=== PATIENT | female | born 1965 | race Caucasian/White ===

== ENCOUNTER 2019-01-09 14:17 | Emergency (ER) | payer OTHER ==
[~2019-01-09] VITALS: Ht 154.9 cm; Wt 57.6 kg
[2019-01-09 14:27] VITALS: BP_SYST 135
[2019-01-09] MEDS ORDERED: IPRATROPIUM/ALBUTEROL SULFATE 3 ML AMPUL.NEB (DUONEB) INH ONE (17:45)
[2019-01-09 18:53] VITALS: BP_SYST 126
== END 2019-01-09 18:53 | disposition home or self-care (01) ==
LOC: SED 14:17
DX: J20.9 Acute bronchitis, unspecified (principal); F41.9 Anxiety disorder, unspecified; F32.9 Major depressive disorder, single episode, unspecified; R03.0 Elevated blood-pressure reading, without diagnosis of hypertension; Z90.49 Acquired absence of other specified parts of digestive tract
CPT/HCPCS: 71045; 99283; J7620

== ENCOUNTER 2019-06-23 01:50 | Emergency (ER) | payer OTHER ==
[~2019-06-23] VITALS: Ht 147.3 cm; Wt 54.4 kg
[2019-06-23 02:10] VITALS: BP_SYST 113
[2019-06-23] MEDS ORDERED: NACL 0.9% 1,000 ML IV ONE ×2 (02:41→04:00)
[2019-06-23] MEDS ORDERED: MORPHINE 4 MG/ML INJ. SYRINGE IVP ONE (03:00)
[2019-06-23] MEDS ORDERED: ONDANSETRON HCL 4 MG/2 ML VIAL IVP ONE (03:00)
[2019-06-23 03:21] LABS: BASOPHILS # (AUTO) 0.1 K/uL (0.0-0.2); EOSINOPHILS # (AUTO) 0.2 K/uL (0.0-0.4); EOSINOPHILS % (AUTO) 1.6 % (0.0-4.0); HEMATOCRIT 37.5 % (36-48); HEMOGLOBIN 12.5 g/dL (12.0-16.0); LYMPHOCYTES # (AUTO) 3.5 K/uL (1.0-5.5); LYMPHOCYTES % (AUTO) 31.3 % (20.5-51.5); MEAN CORPUSCULAR HEMOGLOBIN 29 pg (27-31); MEAN CORPUSCULAR HGB CONC 33 % (32-36); MEAN CORPUSCULAR VOLUME 87 fL (79.0-98.0); MONOCYTES # (AUTO) 0.7 K/uL (0.0-1.0); MONOCYTES % (AUTO) 6.3 % (1.7-9.3); NEUTROPHILS # (AUTO) 6.6 K/uL (1.8-7.7); NEUTROPHILS % (AUTO) 59.8 % (40.0-70.0); PLATELET COUNT (AUTO) 200 K/uL (130-430); RED BLOOD CELL COUNT(AUTO) 4.31 MIL/uL (4.2-6.2); RED CELL DISTRIBUTION WIDTH 13.4 % (9.0-15.0)
[2019-06-23 03:25] LABS: BILIRUBIN,URINE NEGATIVE (NEGATIVE); CLARITY/URINE CLEAR (CLEAR); COLOR,URINE YELLOW (YELLOW); GLUCOSE,URINE NEGATIVE (NEGATIVE); KETONES,URINE NEGATIVE (NEGATIVE); LEUKOCYTE ESTERASE ,URINE TRACE (NEGATIVE); NITRITE, URINE NEGATIVE (NEGATIVE); PH,URINE 6.5 (5.0-8.0); PROTEIN URINE NEGATIVE (NEGATIVE); UROBILINOGEN,URINE 0.2 (0.2-1.0)
[2019-06-23 03:27] LABS: BLOOD, URINE TRACE (NEGATIVE)
[2019-06-23 03:33] LABS: BACTERIA,URINE FEW /HPF (None Seen)
[2019-06-23 03:35] LABS: CALCIUM 8.9 mg/dL (8.4-11.0); CREATININE 0.78 mg/dL (0.55-1.30); POTASSIUM 3.7 mmol/L (3.5-5.1)
[2019-06-23 03:36] LABS: PROTHROMBIN TIME 10.2 SECS (9.5-12.5)
[2019-06-23 03:39] LABS: ALBUMIN 3.7 g/dL (3.4-4.8); TOTAL BILIRUBIN 0.5 mg/dL (0.0-1.0)
[2019-06-23] MEDS: KETOROLAC TROMETHAMINE 30 MG VIAL IVP ONE ×2 (03:57→04:06)
[2019-06-23] MEDS ORDERED: MAG HYDROX/AL HYDROX/SIMETH 30 ML, LIDOCAINE VISCOUS 2% 15ML (PO) 10 ML, DICYCLOMINE HC... PO ONE ×3 (05:15)
[2019-06-23] MEDS ORDERED: MAGNESIUM CITRATE 300 ML ORAL SOLUTION PO ONE (05:45)
[2019-06-23] MEDS ORDERED: MAGNESIUM CITRATE 300 ML ORAL SOLUTION ONE (07:57)
[2019-06-23 07:59] VITALS: BP_SYST 112
== END 2019-06-23 07:59 | disposition home or self-care (01) ==
LOC: SED 01:50
DX: K59.00 Constipation, unspecified (principal); K29.70 Gastritis, unspecified, without bleeding; N39.0 Urinary tract infection, site not specified; F41.9 Anxiety disorder, unspecified; F32.9 Major depressive disorder, single episode, unspecified
CPT/HCPCS: 36415; 74176; 80053; 81000; 81025; 82150; 83690; 85025; 85610; 96361; 96374; 96375; 99284; J1885; J2001; J2270; J2405; J7030

== ENCOUNTER 2019-12-14 23:23 | Emergency (ER) | payer MEDICAID, OTHER ==
[~2019-12-14] VITALS: Ht 144.8 cm; Wt 59.0 kg
[2019-12-14 23:28] VITALS: BP_SYST 148
--- NOTE | 2019-12-14 23:28 | NUR ---
Patient triaged and placed in waiting room. VSS and patient appears in no acute distress at this time. Accompanied by SELF, awaiting available bed, and MD notified of need for MSE.
[2019-12-15 00:36] LABS: BASOPHILS # (AUTO) 0.1 K/uL (0.0-0.2); BASOPHILS % (AUTO) 0.9 % (0.0-2.0); EOSINOPHILS # (AUTO) 0.2 K/uL (0.0-0.4); EOSINOPHILS % (AUTO) 2.3 % (0.0-4.0); HEMATOCRIT 38.2 % (36-48); HEMOGLOBIN 12.6 g/dL (12.0-16.0); LYMPHOCYTES # (AUTO) 3.1 K/uL (1.0-5.5); LYMPHOCYTES % (AUTO) 35.1 % (20.5-51.5); MEAN CORPUSCULAR HEMOGLOBIN 29 pg (27-31); MEAN CORPUSCULAR HGB CONC 33 % (32-36); MEAN CORPUSCULAR VOLUME 88 fL (79.0-98.0); MONOCYTES # (AUTO) 0.6 K/uL (0.0-1.0); MONOCYTES % (AUTO) 6.5 % (1.7-9.3); NEUTROPHILS # (AUTO) 4.9 K/uL (1.8-7.7); NEUTROPHILS % (AUTO) 55.2 % (40.0-70.0); PLATELET COUNT (AUTO) 218 K/uL (130-430); RED BLOOD CELL COUNT(AUTO) 4.32 MIL/uL (4.2-6.2); RED CELL DISTRIBUTION WIDTH 13.2 % (9.0-15.0); WHITE BLOOD COUNT (AUTO) 8.9 K/uL (4.8-10.8)
[2019-12-15 00:51] LABS: CALCIUM 8.7 mg/dL (8.4-11.0); CREATININE 0.87 mg/dL (0.55-1.30); POTASSIUM 3.6 mmol/L (3.5-5.1)
[2019-12-15 00:57] LABS: ALBUMIN 3.7 g/dL (3.4-4.8); TOTAL BILIRUBIN 0.3 mg/dL (0.0-1.0)
--- NOTE | 2019-12-15 01:57 | NUR ---
Patient to ER bed 5 to gown for evaluation. Side rails up. Report given to Fiorella BELLA.
--- NOTE | 2019-12-15 02:00 | NUR ---
Note undone in EDM - 12/15/19 at 0416 by [email or web address] Pt came to the ED for 1 and a half weeks of constipation. Reports she was talking milk of magnesia for this and started having diarrhea. Reports that her primary prescribed her Flagyl and Cipro. States she did not start her ABX due to her condition. +nausea. No other complaints/injuries noted. Will cont. to monitor.
--- NOTE | 2019-12-15 02:00 | NUR ---
Note undone in EDM - 12/15/19 at 0415 by [email or web address] Pt came to the ED for 1 and a half weeks of constipation. Reports she was talking milk of magnesia for this and started having diarrhea. Reports that her primary prescribed her Flagyl and Cipro. States she did not start her ABX due to her condition. +nausea. No other complaints/injuries noted. Will cont. to monitor.
[2019-12-15] MEDS ORDERED: ONDANSETRON HCL 4 MG/2 ML VIAL IVP ONE (02:30)
[2019-12-15] MEDS ORDERED: NACL 0.9% 1,000 ML IV ONE (02:30)
--- NOTE | 2019-12-15 02:30 | NUR ---
ER at bedside examining patient.
--- NOTE | 2019-12-15 02:45 | NUR ---
Pt came to the ED for 1 and a half weeks of constipation. Reports she was talking milk of magnesia for this and started having diarrhea. Reports that her primary prescribed her Flagyl and Cipro. States she did not start her ABX due to her condition. +nausea. No other complaints/injuries noted. Will cont. to monitor.
[2019-12-15 02:46] LABS: AMYLASE 68 U/L (0-100); LIPASE 156 U/L (73-393)
[2019-12-15 03:06] LABS: BILIRUBIN,URINE NEGATIVE (NEGATIVE); CLARITY/URINE CLEAR (CLEAR); COLOR,URINE YELLOW (YELLOW); GLUCOSE,URINE NEGATIVE (NEGATIVE); KETONES,URINE NEGATIVE (NEGATIVE); LEUKOCYTE ESTERASE ,URINE NEGATIVE (NEGATIVE); NITRITE, URINE NEGATIVE (NEGATIVE); PROTEIN URINE NEGATIVE (NEGATIVE); UROBILINOGEN,URINE 0.2 (0.2-1.0)
[2019-12-15 03:10] LABS: BLOOD, URINE TRACE (NEGATIVE)
[2019-12-15 03:22] LABS: RBC,URINE 0-3 /HPF (0-3); WBC,URINE 0-3 /HPF (0-3)
[2019-12-15 03:23] LABS: BACTERIA,URINE FEW /HPF (None Seen)
[2019-12-15] MEDS ORDERED: MAG HYDROX/AL HYDROX/SIMETH 30 ML, LIDOCAINE VISCOUS 2% 15ML (PO) 10 ML, DICYCLOMINE HC... PO ONE ×3 (05:30)
--- NOTE | 2019-12-15 05:53 | NUR ---
Pt medicated with GI cocktail. Tolerated well. Will cont. to monitor.
--- NOTE | 2019-12-15 06:15 | NUR ---
Pt states she feels better per Dr. Healy.
[2019-12-15 06:33] VITALS: BP_SYST 148
--- NOTE | 2019-12-15 06:33 | NUR ---
Patient given written and verbal discharge instructions and verbalizes understanding. ER MD Dr. Healy discussed with patient the results and treatment provided. Patient in stable condition. ID arm band removed. IV catheter removed intact and dressing applied, no active bleeding. Patient educated on pain management and to follow up with PMD. Pain Scale 0/10. Opportunity for questions provided and answered. Medication side effect fact sheet provided.
== END 2019-12-15 06:33 | disposition home or self-care (01) ==
LOC: SED 23:23
DX: K21.9 Gastro-esophageal reflux disease without esophagitis (principal); R10.9 Unspecified abdominal pain; R19.7 Diarrhea, unspecified; R11.2 Nausea with vomiting, unspecified; F41.9 Anxiety disorder, unspecified
CPT/HCPCS: 36415; 74176; 80053; 81000; 82150; 83690; 85025; 96361; 96374; 99284; J2001; J2405; J7030

== ENCOUNTER 2024-06-25 21:16 | Emergency (ER) | payer MEDICAID ==
[~2024-06-25] VITALS: Ht 147.3 cm; Wt 63.5 kg
[2024-06-25 21:26] VITALS: BP_SYST 114; PULSE 73; RESP 20; TEMP 97.8; O2SAT 96
[2024-06-25 23:39] LABS: BASOPHILS # (AUTO) 0.1 K/uL (0.0-0.2); BASOPHILS % (AUTO) 0.8 % (0.0-2.0); EOSINOPHILS # (AUTO) 0.2 K/uL (0.0-0.4); EOSINOPHILS % (AUTO) 2.4 % (0.0-4.0); HEMATOCRIT 36.2 % (36-48); HEMOGLOBIN 12.1 g/dL (12.0-16.0); LYMPHOCYTES # (AUTO) 3.7 K/uL (1.0-5.5); LYMPHOCYTES % (AUTO) 40.4 % (20.5-51.5); MEAN CORPUSCULAR HEMOGLOBIN 28 pg (27-31); MEAN CORPUSCULAR HGB CONC 33 % (32-36); MEAN CORPUSCULAR VOLUME 85 fL (79.0-98.0); MONOCYTES # (AUTO) 0.6 K/uL (0.0-1.0); MONOCYTES % (AUTO) 6.4 % (1.7-9.3); NEUTROPHILS # (AUTO) 4.6 K/uL (1.8-7.7); PLATELET COUNT (AUTO) 240 K/uL (130-430); RED BLOOD CELL COUNT(AUTO) 4.27 MIL/uL (4.2-6.2); RED CELL DISTRIBUTION WIDTH 14.1 % (9.0-15.0); WHITE BLOOD COUNT (AUTO) 9.2 K/uL (4.8-10.8)
[2024-06-26 00:02] LABS: ANION GAP 6 (5-15); CALCIUM 8.9 mg/dL (8.4-11.0); CARBON DIOXIDE 30 mmol/L (23-29); CHLORIDE 106 mmol/L (98-107); CREATININE 0.66 mg/dL (0.55-1.30); GFR AFRICAN AMERICAN 117 mL/min (>90); GFR NON AFRICAN-AMERICAN 97 mL/min (>90); GLUCOSE 96 mg/dL (74-106); POTASSIUM 3.5 mmol/L (3.5-5.1); SODIUM SERUM 142 mmol/L (136-145); UREA NITROGEN, BLOOD 17 mg/dL (8-21)
[2024-06-26 00:30] VITALS: BP_SYST 126; PULSE 81; RESP 18; O2SAT 97
[2024-06-26] MEDS ORDERED: VIS25 PO (00:30)
== END 2024-06-26 00:45 | disposition home or self-care (01) ==
LOC: SED 21:16
DX: R20.2 Paresthesia of skin (principal); R51.9 Headache, unspecified; F41.9 Anxiety disorder, unspecified; Z79.899 Other long term (current) drug therapy
CPT/HCPCS: 36415; 70450-TC; 80048; 84484; 85025; 93005; 99284